=== PATIENT | male | born 1965 | race Caucasian/White ===

== ENCOUNTER 2022-04-10 10:52 | Outpatient (RCR) | payer OTHER | END 2022-04-11 | disposition home or self-care (01) | LOC: ONC 10:52 | PROVIDERS: ATTEND Radiology Radiation Oncology | DX: C61 Malignant neoplasm of prostate (principal) | CPT/HCPCS: 99205 ==

== ENCOUNTER 2022-04-18 12:53 | Outpatient (RCR) | payer OTHER ==
[2022-05-04] MEDS ORDERED: DILT240C92 PO (13:00)
[2022-05-04] MEDS ORDERED: ASPI-999 PO (13:00)
[2022-05-04] MEDS ORDERED: OMEP20CA18 PO (13:00)
== END 2022-05-12 | disposition home or self-care (01) ==
LOC: ONC 12:53
PROVIDERS: ATTEND Internal Medicine Hematology & Oncology
DX: Z53.9 Procedure and treatment not carried out, unspecified reason (principal)

== ENCOUNTER → 2022-04-18 | Outpatient (CLI) | payer OTHER ==
[~2022-04-18] MED LIST: HOLD METFORMIN - RECEIVED CONTRAST 20 ML VIAL IV SCH; IOHEXOL 350 MG/ML 100 ML (OMNIPAQUE 350) VIAL IV ONE; NS 100 ML (IVPB) BAG IV ONE
[2022-04-18] MEDS: CATHETER FLUSH 10 ML SYR IVP PRN ×2 (10:25→11:16)
--- NOTE | 2022-04-18 11:49 | Diagnostic Imaging Report ---
PROCEDURE: CT abdomen and pelvis with and without contrast. TECHNIQUE: Precontrast acquisitions were acquired through the abdomen and pelvis. Multiple contiguous axial images were obtained through the abdomen and pelvis after the administration of intravenous contrast. Auto Exposure Controls were utilized during the CT exam to meet ALARA standards for radiation dose reduction. INDICATION: Prostate cancer workup. No prior studies are available for comparison. There is a 13 mm nodular density in the right middle lobe which is indeterminate. Remainder lung bases are clear. No focal liver mass is identified. There are small stones in the gallbladder. No biliary ductal dilatation is seen. The pancreas and spleen are unremarkable. No adrenal mass is detected. Kidneys are without calculi or hydronephrosis. Aorta is nonaneurysmal. No central retroperitoneal or mesenteric lymphadenopathy is identified. The bowel loops are nonobstructed. There is an area of significant wall thickening involving the sigmoid colon. There are some diverticula present within the sigmoid colon as well. There is no ascites. The bladder is decompressed. Prostate gland is unremarkable. No definite pelvic lymphadenopathy is seen. There is a fat-containing left inguinal hernia. No osteolytic or blastic lesions are seen. IMPRESSION: 1. Indeterminate right middle lobe pulmonary nodule. PET/CT study may be useful for further evaluation to evaluate for hypermetabolism. 2. Cholelithiasis. 3. No evidence of abdominal or pelvic lymphadenopathy or metastatic disease. 4. Significant wall thickening versus mass involving the sigmoid colon. There are some diverticula present in the possibility of mild diverticulitis cannot be entirely excluded. Endoscopy after a course of therapy would be recommended if not recently performed to exclude underlying mass lesion. 5. Fat-containing left inguinal hernia. Dictated by: Dictated on workstation # [id number]
--- NOTE | 2022-04-18 18:50 | Diagnostic Imaging Report ---
Exam: Nuclear medicine whole body bone scan. Date: April 18, 2022. Indication: 56-year-old male, new diagnosis of prostate cancer. Evaluation for bone metastasis. Comparison: CT abdomen and pelvis April 18, 2022. Findings: 26.7 mCi of technetium labeled MDP radiotracer was administered. Delayed whole-body bone scan images were subsequently obtained. There is radiotracer uptake in the region of the right midfoot which may be arthritic or musculoskeletal related. This is highly unlikely to relate to bone metastasis. There is radiotracer activity involving the mid thoracic spine to the right of midline as well as at the level of the lumbar spine. The thoracic and lumbar spine uptake relates to degenerative changes correlating with same day CT abdomen and pelvis exam. There are bilateral L3 pars interarticularis defects. Impression: 1. Radiotracer uptake at the level of the thoracolumbar spine which is likely degenerative related and/or secondary to L3 bilateral pars interarticularis defects. 2. No identified osteoblastic bone metastasis. Dictated by: Dictated on workstation # [id number]
== END ==
LOC: CARD 10:10
PROVIDERS: ATTEND Radiology Radiation Oncology
DX: C61 Malignant neoplasm of prostate (principal); K80.20 Calculus of gallbladder without cholecystitis without obstruction; K57.90 Diverticulosis of intestine, part unspecified, without perforation or abscess without bleeding; K40.90 Unilateral inguinal hernia, without obstruction or gangrene, not specified as recurrent
CPT/HCPCS: 74178; 78306; A9503

== ENCOUNTER → 2022-04-27 | Outpatient (CLI) | payer OTHER ==
[~2022-04-27] MED LIST changes: +CATHETER FLUSH 10 ML SYR IVP PRN; -HOLD METFORMIN - RECEIVED CONTRAST 20 ML VIAL IV SCH; -IOHEXOL 350 MG/ML 100 ML (OMNIPAQUE 350) VIAL IV ONE; -NS 100 ML (IVPB) BAG IV ONE
--- NOTE | 2022-04-28 08:56 | Diagnostic Imaging Report ---
INDICATION: Pulmonary nodule. Serum blood glucose level at at the time of injection is 120 mg/dL. Patient was administered 10.1 mCi F-18 FDG intravenously in the right antecubital location and PET imaging was performed from the top of the skull to mid thighs. Noncontrast CT was also performed for attenuation correction and anatomic correlation. No prior PET/CT studies are available for comparison. Comparison is made with recent CT of the abdomen and pelvis from 04/18/2022. There is symmetric activity throughout the brain. Soft tissues of the neck are unremarkable. No mediastinal or hilar hypermetabolism is identified. The right middle lobe nodule described on recent CT does not show FDG avidity. No pulmonary parenchymal hypermetabolism is identified. There is physiologic activity throughout the gastrointestinal and genitourinary tracts of the abdomen and pelvis. There is some activity in the sigmoid colon at the region of wall thickening described on recent CT with an SUV max of 6.3. Correlation of this area with endoscopy would be recommended. No hypermetabolic abdominal or pelvic lymph nodes are identified. IMPRESSION: 1. The right middle lobe pulmonary nodule does not demonstrate FDG avidity. Continued follow-up would be recommended to confirm stability. 2. There is some uptake in the sigmoid colon at the area of wall thickening versus mass noted on recent CT. Correlation with endoscopy would be recommended if not already performed. Dictated by: Dictated on workstation # [id number]
== END ==
LOC: RAD 07:38
PROVIDERS: ATTEND Radiology Radiation Oncology
DX: K63.89 Other specified diseases of intestine (principal); R91.1 Solitary pulmonary nodule; C61 Malignant neoplasm of prostate
CPT/HCPCS: 78815; 82947; A9552

== ENCOUNTER 2022-05-04 12:11 | Outpatient (CLI) | payer OTHER ==
[~2022-05-04] VITALS: Ht 172.7 cm; Wt 93.0 kg
[2022-05-04] MEDS ORDERED: OMEP20CA18 PO (13:00)
[2022-05-04] MEDS ORDERED: ASPI-999 PO (13:00)
[2022-05-04] MEDS ORDERED: DILT240C92 PO (13:00)
== END 2022-05-04 13:01 | disposition home or self-care (01) ==
LOC: PREOP 12:11
PROVIDERS: ATTEND Internal Medicine
DX: Z01.818 Encounter for other preprocedural examination (principal)

== ENCOUNTER 2022-05-05 08:12 | Day surgery (SDC) | payer OTHER ==
[~2022-05-05] VITALS: Ht 172.7 cm; Wt 93.0 kg
--- NOTE | 2022-05-05 08:00 | HISTORY AND PHYSICAL ---
COLONOSCOPY HISTORY AND PHYSICAL HISTORY OF PRESENT ILLNESS: The patient is a 57-year-old white male being referred by Dr. Wong for diagnostic colonoscopy. In the workup of his prostate cancer, he had a PET scan revealed a PET positive sigmoid colon mass. He denies abdominal pain and has noted no bright red blood per rectum, melena and has had no bowel habit change and reports of anything he is put on some weight over the past several months. He reports he had a colonoscopy 20 years ago, at which time, several polyps were removed. He also reports a grandmother with colon cancer in her 60s and an uncle around the same age with colon cancer. Past medical history was significant for a diagnosis of prostate cancer after July of last year when he was noted to have a PSA of 14. He was on active surveillance, but his PSA went up to 23 in February, so he was being worked up for further treatment. He reports that bone scan was negative. There were no other reported areas of PET positivity other than the prostate and sigmoid colon. PAST MEDICAL HISTORY: Reflux and erectile dysfunction as well as hypertension. MEDICATIONS: On admission include diltiazem 240 mg daily, sildenafil 20 mg daily, aspirin 81 mg daily, and omeprazole 20 mg daily. He has had left cataract extraction with no other significant past surgical history. FAMILY HISTORY: As noted in the HPI. 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 No significant alcohol intake is noted. REVIEW OF SYSTEMS: CONSTITUTIONAL: Weight gain, not weight loss without night sweats, chills or fever. GASTROINTESTINAL: As noted in the HPI. PULMONARY: Denies wheezing or shortness of breath, stable cough, nonpurulent sputum production. CARDIOVASCULAR: Denies chest pain, orthopnea, PND, pedal edema or syncope. PHYSICAL EXAMINATION: GENERAL: Reveals a pleasant white male who appears to be in no acute distress. There is no evidence for pallor. VITAL SIGNS: Weight is 205 pounds, blood pressure 140/80. HEENT: Unremarkable. Sclerae nonicteric. CHEST: Clear to auscultation. CARDIOVASCULAR: Reveals regular rate and rhythm without murmur, S3, or S4. ABDOMEN: Soft, supple without mass, organomegaly, or tenderness. EXTREMITIES: No cyanosis, clubbing or edema. ASSESSMENT AND PLAN: The patient is being set up for diagnostic colonoscopy for evaluation of a PET scan positive sigmoid colon mass. This is an individual with positive family history for colon cancer as well as a past history of colon polyps. Prep instructions were given and questions were answered. Thank you for the referral of this pleasant gentleman. 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
[~2022-05-05 08:12] MED LIST changes: +ASPI-999 PO; -CATHETER FLUSH 10 ML SYR IVP PRN; +DILT240C92 PO; +OMEP20CA18 PO
[2022-05-05] MEDS ORDERED: LACTATED RINGERS 1,000 ML IV STA (08:18)
--- NOTE | 2022-05-05 08:35 | Pre-Op Note & Conscious Sedat ---
Pre-Operative Progress Note Date H&P Reviewed: May 05, 2022 Time H&P Reviewed: 08:35 History & Physical: H&P Reviewed, Patient Examed, No changes noted Pre-Op Diagnosis: sigmoid mass Moderate Sedation PreProcedure ASA Score 2 Airway Lungs Heart ASA score ASA 1: a normal healthy patient ASA 2: a patient with a mild systemic disease (mid diabetes, controlled hypertension, obesity ASA 3: a patient with a severe systemic disease that limits activity (angina, COPD, prior Myocardial infarction) ASA 4: a patient with an incapacitating disease that is a constant threat to life (CHF, renal failure) ASA 5: a moribund patient not expected to survive 24 hrs. (ruptured aneurysm) ASA 6: a declared brain- patient whose organs are being harvested. For emergent operations, add the letter E after the classification Mallampati Classification Grade 2 Sedation Plan Analgesia, Amnesia, Plan communicated to team members, Discussed options with patient/fam, Discussed risks with patient/fam The patient is an appropriate candidate to undergo the planned procedure, sedation, and anesthesia. The patient immediately re-assessed prior to indication. MARK OLEARY MD May 05, 2022 08:35
[2022-05-05 08:37] VITALS: BP 146/98
[2022-05-05] MEDS ORDERED: PROPOFOL INJECTION 50 ML IV ONE (09:18)
[2022-05-05] MEDS ORDERED: proPOfol 200 MG/20 ML (DIPRIVAN) VIAL IV ONE (10:00)
[2022-05-05 10:05] VITALS: BP 123/76
--- NOTE | 2022-05-05 10:11 | Progress Note-Post Operative ---
Post-Procedure Note Physician (s)/Supply Chain Engineer (s) Physician MARK OLEARY MD Pre-Procedure Diagnosis Pre-Procedure Diagnosis: sigmoid mass Post-Procedure Diagnosis Post-operative diagnosis: Prior to undergoing colonoscopy digital rectal evaluation was performed. Anal sphincter tone was normal and the perianal reflexes intact. Prostate was moderately enlarged but despite reported biopsy-proven prostate cancer I did not feel any nodules. No other abnormalities noted on digital inspection of the anal canal or distal rectal vault. The colonoscope was then inserted into the rectum and under direct visualization advanced to the cecum. The cecum was identified by indication of the ileocecal valve and cecal strap. Photographic dictation was obtained. A careful inspection was made as the colonoscope withdrawn. Quality the prep was good. Findings: There are no evidence for internal or external hemorrhoids. Several small 1 to 2 mm hyperplastic appearing polyps were noted in the mid rectum the largest was biopsied ablated and submitted for us to pathology. Remainder the rectum was unremarkable. Several small sigmoid diverticulum were present. At 30 cm from the anal verge in the proximal sigmoid colon there was an area of narrowing that appeared to be extrinsic in nature there is some mild bowel wall erythema without induration or ulceration. Photographs were obtained biopsies slightly friable but not sclerotic were obtained from nonulcerated but slightly erythematous mucosa. Without much difficulty was able to get the scope beyond the area into the descending colon which was unremarkable as was the splenic flexure transverse colon hepatic flexure ascending colon and cecum. A/P 1. There is an area 30 cm from anal verge in the proximal sigmoid colon that appears more inflammatory in nature with mild narrowing but no evidence for ulceration or induration no and trend sick masslike effect is noted. biopsies were obtained and submitted for histopathology. One 2 mm hyperplastic appearing mid rectal polyp was removed via hot forceps with no blood loss. Mild diverticular disease confined to the sigmoid colon was present. Will await histopathology report before advocating timing on future colonoscopy. CC: Leidy Winchester [facility] CC Dr. Hai Diehl MD. MARK OLEARY MD May 05, 2022 10:11
[2022-05-05 10:30] VITALS: BP 129/85
--- NOTE | 2022-05-05 11:10 | Anesthesia-General Post-Op ---
MAC Patient Condition Mental Status/LOC: Same as Preop Cardiovascular: Satisfactory Nausea/Vomiting: Absent Respiratory: Satisfactory Pain: Controlled Complications: Absent Post Op Complications Complications None Follow Up Care/Instructions Patient Instructions None needed. Anesthesiology Discharge Order Discharge Order Patient is doing well, no complaints, stable vital signs, no apparent adverse anesthesia problems. No complications reported per nursing. YASMEEN PADRON CRNA May 05, 2022 11:10
== END 2022-05-05 10:45 | disposition home or self-care (01) ==
LOC: ENDO 08:12
PROVIDERS: ATTEND Internal Medicine
DX: K63.9 Disease of intestine, unspecified (principal); K57.30 Diverticulosis of large intestine without perforation or abscess without bleeding; K62.1 Rectal polyp; K63.89 Other specified diseases of intestine; C61 Malignant neoplasm of prostate; Z80.0 Family history of malignant neoplasm of digestive organs; Z87.891 Personal history of nicotine dependence

== ENCOUNTER 2022-05-25 14:47 | Outpatient (RCR) | payer OTHER ==
[~2022-05-25 14:47] MED LIST changes: +LEUPROLIDE 22.5 MG SYRINGE (ELIGARD) SQ SCH
== END 2022-06-11 | disposition home or self-care (01) ==
LOC: ONC 14:47
PROVIDERS: ATTEND Internal Medicine Hematology & Oncology
DX: Z51.11 Encounter for antineoplastic chemotherapy (principal); C61 Malignant neoplasm of prostate
CPT/HCPCS: 96402

== ENCOUNTER 2022-07-11 14:49 | Outpatient (RCR) | payer OTHER ==
[~2022-07-11 14:49] MED LIST changes: -LEUPROLIDE 22.5 MG SYRINGE (ELIGARD) SQ SCH
== END 2022-07-12 | disposition home or self-care (01) ==
LOC: ONC 14:49
PROVIDERS: ATTEND Internal Medicine Hematology & Oncology
DX: C61 Malignant neoplasm of prostate (principal)

== ENCOUNTER 2022-08-24 15:52 | Outpatient (RCR) | payer OTHER ==
[~2022-08-24 15:52] MED LIST changes: +LEUPROLIDE 22.5 MG SYRINGE (ELIGARD) SQ SCH
== END 2022-09-11 | disposition home or self-care (01) ==
LOC: ONC 15:52
PROVIDERS: ATTEND Internal Medicine Hematology & Oncology
DX: C61 Malignant neoplasm of prostate (principal)
CPT/HCPCS: 96402

== ENCOUNTER 2022-09-19 11:08 | Outpatient (RCR) | payer OTHER ==
[~2022-09-19 11:08] MED LIST changes: -LEUPROLIDE 22.5 MG SYRINGE (ELIGARD) SQ SCH
[2022-10-25] MEDS ORDERED: ACET-11 PO (11:58)
[2022-10-25] MEDS ORDERED: CIPR-226 PO (11:58)
== END 2022-10-12 | disposition home or self-care (01) ==
LOC: ONC 11:08
PROVIDERS: ATTEND Internal Medicine Hematology & Oncology
DX: C61 Malignant neoplasm of prostate (principal)
CPT/HCPCS: 99214

== ENCOUNTER 2022-10-18 05:31 | Outpatient (CLI) | payer OTHER ==
[~2022-10-18] VITALS: Ht 172.7 cm; Wt 89.1 kg
[2022-10-19] MEDS ORDERED: HYDR12.56 PO (16:53)
[2022-10-19] MEDS ORDERED: OMEP20CA18 PO (16:53)
[2022-10-19] MEDS ORDERED: SILD20TA14 PO (16:53)
== END 2022-10-19 17:26 | disposition home or self-care (01) ==
LOC: PREOP 05:31
PROVIDERS: ATTEND Radiology Radiation Oncology
DX: Z01.818 Encounter for other preprocedural examination (principal)

== ENCOUNTER 2022-10-25 10:48 | Day surgery (SDC) | payer OTHER ==
[2022-10-25] VITALS (10 sets, daily range): BP systolic 105–143; BP diastolic 79–97
[~2022-10-25] VITALS: Ht 172.7 cm; Wt 89.1 kg
[~2022-10-25 10:48] MED LIST changes: +HYDR12.56 PO; +SILD20TA14 PO
[2022-10-25] MEDS ORDERED: LACTATED RINGERS 1,000 ML 1,000 ML IV PRN (11:45)
--- NOTE | 2022-10-25 11:55 | Progress Note-Pre Operative ---
Pre-Operative Progress Note Date of Available H&P: Oct 10, 2022 Date H&P Reviewed: Oct 25, 2022 Time H&P Reviewed: 11:54 History & Physical: H&P Reviewed, No changes noted Pre-Operative Diagnosis: Prostate cancer cT1c, PSA 23.3, [place] 7 (3+4) ABNER URBINA MD Oct 25, 2022 11:54
[2022-10-25] MEDS ORDERED: ACET-11 PO (11:58)
[2022-10-25] MEDS ORDERED: CIPR-226 PO (11:58)
--- NOTE | 2022-10-25 12:01 | Discharge Inst-Simple/Standard ---
Discharge Inst-Standard Reconcile Patient Problems Problems Reviewed?: Yes Discharge Medications New, Converted or Re-Newed RX: Other (scripts called into pharmacy 10/24/22 by aggaudencio) Patient Instructions/Follow Up Plan of Care/Instructions/FU: 1) To [facility] Sunday10/30/22 after 8:00 a.m. for ashford catheter removal 2) One month post implant ct scan at [facility] 11/21/22 at 9:30 a.m. 3) One month post implant follow up with Dr Silvestre 11/20/22 at 10:15 a.m. Activity as Tolerated: Yes Discharge Diet: No Restrictions Other Inst to Patient Please instruct patient on ashford catheter care. He is to return to [facility] Sunday10/30/22 after 8:00 a.m for ashford removal. ABNER URBINA MD Oct 25, 2022 12:01
[2022-10-25] MEDS ORDERED: SEVOFLURANE (ULTANE) 15 ML INHAL SOLN ONE ×3 (13:44→15:08)
[2022-10-25] MEDS ORDERED: MIDAZOLAM INJ 2 MG/2 ML VIAL ONE (13:44)
[2022-10-25] MEDS ORDERED: LIDOCAINE PF 2% 5 ML VIAL ONE (13:44)
[2022-10-25] MEDS ORDERED: ONDANSETRON INJECTION 4 MG/2 ML (SDV) ONE (13:44)
[2022-10-25] MEDS ORDERED: fentaNYL INJECTION 100 MCG/2 ML VIAL ONE (13:44)
[2022-10-25] MEDS ORDERED: proPOfol INJECTION 200 MG/20 ML VIAL IV ONE (13:44)
[2022-10-25] MEDS ORDERED: BACITRACIN OINTMENT 28 GM TUBE ONE (13:46)
[2022-10-25] MEDS ORDERED: diphenhydrAMINE INJ 50 MG/ML VIAL ONE (13:59)
[2022-10-25] MEDS ORDERED: PHENYLEPHRINE 100 MCG/ML 10 ML (ANESTHESIA) SYR ONE (14:29)
[2022-10-25] MEDS ORDERED: BACITRACIN OINTMENT 28 GM TUBE TOP ONE (15:23)
--- NOTE | 2022-10-25 15:28 | Anesthesia-General Post-Op ---
General Patient Condition Mental Status/LOC: Same as Preop Cardiovascular: Satisfactory Nausea/Vomiting: Absent Respiratory: Satisfactory Pain: Controlled Complications: Absent Post Op Complications Complications None Follow Up Care/Instructions Patient Instructions None needed. Anesthesia/Patient Condition Patient Condition Patient is doing well, no complaints, stable vital signs, no apparent adverse anesthesia problems. No complications reported per nursing. DANI POWELL CRNA Oct 25, 2022 15:28
[2022-10-25] MEDS ORDERED: ONDANSETRON INJECTION 4 MG/2 ML (SDV) IVP PRN (15:30)
[2022-10-25] MEDS ORDERED: fentaNYL INJECTION 100 MCG/2 ML VIAL IVP ONE (15:30)
--- NOTE | 2022-10-25 15:53 | Progress Note-Post Operative ---
Post-Operative Progess Note Surgeon (s)/Double Reamer Operator (s) Surgeon ABNER URBINA MD Double Reamer Operator: Ventura FAROOQ MD Pre-Operative Diagnosis Prostate cancer cT1c, PSA 23.3, [place] 7 (3+4) Post-Operative Diagnosis Same as pre-op Procedure & Operative Findings Date of Procedure 10/25/22 Procedure Performed/Findings (1) 67% Cesium 131 permanent prostate seed implant (2) Injection of biodegradable prostate-rectal spacer utilizing the Barrigel system (3) Cystogram Prostate volume 20.5 cc Anesthesia Type General Estimated Blood Loss Estimated blood loss (mL): Minimal Specimens/Packing Specimens Removed N/A Packing: N/A ABNER URBINA MD Oct 25, 2022 15:53
--- NOTE | 2022-10-26 09:46 | Diagnostic Imaging Report ---
INDICATION: Brachytherapy. FINDINGS: 11.7 seconds of fluoroscopy time were utilized during brachytherapy and cystography intraoperative. IMPRESSION: Fluoroscopy utilized during urological procedure. Dictated by: Dictated on workstation # [id number]
== END 2022-10-25 17:10 ==
LOC: SDC 10:48
PROVIDERS: ATTEND Radiology Radiation Oncology
DX: C61 Malignant neoplasm of prostate (principal); F17.210 Nicotine dependence, cigarettes, uncomplicated; Z28.310 Unvaccinated for COVID-19
CPT/HCPCS: 55874; 55876; 76000; 76965; 77318; 77332; 77370; 77470; 77778; 87081; C1715 ×2; C1889; C2643

== ENCOUNTER → 2022-12-12 | Outpatient (RCR) | payer OTHER ==
[~2022-12-12] MED LIST changes: +ACET-11 PO; +CIPR-226 PO; +LEUPROLIDE 22.5 MG SYRINGE (ELIGARD) SQ SCH
== END | disposition home or self-care (01) ==
LOC: ONC 11-16 13:10
PROVIDERS: ATTEND Internal Medicine Hematology & Oncology
DX: Z51.0 Encounter for antineoplastic radiation therapy (principal); C61 Malignant neoplasm of prostate
CPT/HCPCS: 77290; 77334; 96402

== ENCOUNTER → 2023-01-11 | Outpatient (RCR) | payer OTHER ==
[~2023-01-11] MED LIST changes: -LEUPROLIDE 22.5 MG SYRINGE (ELIGARD) SQ SCH
== END | disposition home or self-care (01) ==
LOC: ONC 12-18 14:15
PROVIDERS: ATTEND Internal Medicine Hematology & Oncology
DX: Z51.0 Encounter for antineoplastic radiation therapy (principal); C61 Malignant neoplasm of prostate
CPT/HCPCS: 77300; 77301; 77336; 77338; 77385; 77470